=== PATIENT | female | born 1950 | race Caucasian/White ===

== ENCOUNTER 2019-06-26 09:20 | Outpatient (CLI) | payer MEDICARE, OTHER ==
[~2019-06-26 09:20] MED LIST: DIPH25CA61 PO; DULO30CA2 PO; ESTR1TAB99 PO; LEVO25TA2 PO; NORE0.3513 PO; OMEG1CAP23 PO; OMEG200L PO; PREG150C PO; UBID150C PO; juice plus PO
[2019-06-26 13:06] LABS: MICROSCOPIC NOT IND
[2019-06-26 13:10] LABS: CULTURE INDICATED? NO
[2019-06-26 13:14] LABS: BASOPHILS # (AUTO) 0.03 x10^3/uL (0-0.1); BASOPHILS % (AUTO) 1 % (0-1); EOSINOPHILS # (AUTO) 0.13 x10^3/uL (0-0.4); EOSINOPHILS % (AUTO) 3 % (1-7); LYMPHOCYTES # (AUTO) 1.45 x10^3/uL (1-3.4); LYMPHOCYTES % (AUTO) 29 % (22-44); MD NO; MEAN CORPUSCULAR HEMOGLOBIN 31.1 pg (27.0-34.8); MEAN CORPUSCULAR HGB CONC 34.4 g/dL (32.4-35.8); MEAN CORPUSCULAR VOLUME 90.4 fL (80-100); MEAN PLATELET VOLUME 9.5 fL (7.4-10.4); MONOCYTES # (AUTO) 0.33 x10^3/uL (0.2-0.8); MONOCYTES % (AUTO) 7 % (2-9); NEUTROPHILS # (AUTO) 3.03 x10^3/uL (1.8-6.8); NEUTROPHILS % (AUTO) 61 % (42-75); PLATELET COUNT 251 x10^3/uL (130-400); RED BLOOD COUNT 4.69 x10^6/uL (3.82-5.3); RED CELL DISTRIBUTION WIDTH 12.4 % (9.6-15.2)
[2019-06-26 15:18] LABS: CHLORIDE 106 mmol/L (98-107)
[2019-06-26 15:44] LABS: ALANINE AMINOTRANSFERASE 27 U/L (12-78); ALBUMIN 3.9 g/dL (3.4-5.0); ALKALINE PHOSPHATASE 67 U/L (45-117); ANION GAP 4 mmol/L (5-15); BILIRUBIN,TOTAL 0.4 mg/dL (0.2-1.0); CALCIUM 9.3 mg/dL (8.5-10.1); CREATININE 0.94 mg/dL (0.55-1.02); HDL CHOLESTEROL (DIRECT) 71 mg/dL (40-60); TOTAL PROTEIN 7.4 g/dL (6.4-8.2); TRIGLYCERIDES 115 mg/dL (50-200); VLDL CHOLESTEROL 23 mg/dL (0-25)
[2019-06-26 21:08] LABS: CHOL/HDL RATIO 3.5; CHOLESTEROL, TOTAL 250 mg/dL (140-239); HDL CHOL % 28 % (28-40); LDL CHOLESTEROL,CALCULATED 156 mg/dL (54-169); LDL/HDL RATIO 2.2 (0.5-3.0)
== END 2019-06-26 23:59 | disposition home or self-care (01) ==
LOC: CFH 09:20
PROVIDERS: ATTEND Nurse Practitioner Family
DX: Z12.11 Encounter for screening for malignant neoplasm of colon (principal); Z12.31 Encounter for screening mammogram for malignant neoplasm of breast; F32.9 Major depressive disorder, single episode, unspecified; R42 Dizziness and giddiness; R51 Headache; R53.83 Other fatigue; Z79.899 Other long term (current) drug therapy
CPT/HCPCS: 36415; 80053; 80061; 81003; 83036; 84443; 85025